=== PATIENT | male | born 1965 | race Caucasian/White ===

== ENCOUNTER 2021-11-01 13:25 | Inpatient (IN) ==
[2021-11-01 15:37] VITALS: BP 141/91
[2021-11-01] MEDS ORDERED: GLUCAGON 1 MG VIAL IM PRN ×2 (16:05)
[2021-11-01] MEDS ORDERED: hydrALAZINE 20 MG/1 ML VIAL IV PRN (16:05)
[2021-11-01] MEDS ORDERED: DEXTROSE 50% 25 GM/50 ML VIAL IV PRN (16:05)
[2021-11-01] MEDS ORDERED: DEXTROSE 10% 250 ML BAG IV PRN (16:28)
[2021-11-01] MEDS ORDERED: ENOXAPARIN 40 MG/0.4 ML SYRINGE SUBCUT SCH (16:30)
[2021-11-01] MEDS: ENOXAPARIN 150 MG/ML SYRINGE SUBCUT SCH (18:20)
[2021-11-01] MEDS: INSULIN LISPRO 100 UNIT/ML SUBCUT SCH ×2 (19:19→23:41)
[2021-11-01 19:31] LABS: Basophils % 0.2 % (0.0-0.8); Eosinophils # 0.2 10*3/uL (0.0-0.87); Eosinophils % 2.5 % (0.00-10.9); Hemoglobin 14.4 GM/DL (14.0-18.0); Immature Granulocytes % 0.4 %; Immature Granulocytes Absolute 0.03 #; Lymphocytes # 3.2 10*3/uL (1.4-4.0); Lymphocytes % 37.4 % (21.2-54.2); Mean Corpuscular Volume 93.4 FL (87-102); Mean Platelet Volume 10.2 FL (9.6-12.0); Monocytes # 0.8 10*3/uL (0.11-0.8); Monocytes % 9.4 % (1.7-12.7); Neutrophils % 50.1 % (38.7-73.9); Platelet Count 144 T/CUMM (130-400); Red Blood Count 4.82 MC/CUMM (3.8-5.5); White Blood Count 8.5 T/CUMM (4-12)
[2021-11-01] MEDS: THIAMINE INJ 100 MG, FOLIC ACID INJ 1 MG, MULTIVITAMIN INJ 10 ML in SODIUM CHLORIDE 0.4... IV SCH (19:38)
[2021-11-01 19:54] LABS: Albumin 3.6 G/DL (3.4-5.0); Bilirubin,Total 0.4 MG/DL (0.20-1.00); Calcium 8.6 MG/DL (8.5-10.1); Osmolality,Calculated 277.5 MOS/KG (273-304); Potassium 4.4 MMOL/L (3.5-5.1); Total Protein 6.9 G/DL (6.4-8.2)
[2021-11-01] MEDS: ATORVASTATIN 80 MG TABLET PO SCH (21:59)
[2021-11-01] MEDS: METOPROLOL TARTRATE 25 MG TABLET PO SCH (22:05)
[2021-11-02 03:10] LABS: Basophils % 0.2 % (0.0-0.8); Eosinophils # 0.2 10*3/uL (0.0-0.87); Eosinophils % 1.8 % (0.00-10.9); Hematocrit 45.9 VOL% (42.0-52.0); Hemoglobin 14.5 GM/DL (14.0-18.0); Immature Granulocytes % 0.4 %; Immature Granulocytes Absolute 0.04 #; Lymphocytes # 3.9 10*3/uL (1.4-4.0); Lymphocytes % 37.9 % (21.2-54.2); Mean Corpuscular HGB Conc 31.6 GM/DL (32-36); Mean Corpuscular Volume 93.3 FL (87-102); Mean Platelet Volume 10.3 FL (9.6-12.0); Monocytes # 0.8 10*3/uL (0.11-0.8); Monocytes % 7.8 % (1.7-12.7); Neutrophils % 51.9 % (38.7-73.9); Platelet Count 145 T/CUMM (130-400); Red Blood Count 4.92 MC/CUMM (3.8-5.5); Red Cell Distribution Width 13.1 % (9.3-17.3); White Blood Count 10.2 T/CUMM (4-12)
[2021-11-02 03:35] LABS: Calcium 8.9 MG/DL (8.5-10.1); Potassium 3.9 MMOL/L (3.5-5.1); Risk Ratio 6.38; Thyroid Stimulating Hormone 1.26 uIU/ml (0.358-3.74)
[2021-11-02] MEDS: ENOXAPARIN 150 MG/ML SYRINGE SUBCUT SCH (05:50)
[2021-11-02] MEDS: INSULIN LISPRO 100 UNIT/ML SUBCUT SCH ×4 (05:54→23:23)
[2021-11-02] MEDS ORDERED: NITROGLYCERIN 2% OINT 1 INCH/GM PACK TOP SCH (06:33)
[2021-11-02] MEDS ORDERED: NITROGLYCERIN SL 0.4 MG TABLET SL PRN (06:33)
[2021-11-02] MEDS ORDERED: DIAZEPAM 5 MG TABLET PO ONE (07:45)
[2021-11-02] MEDS ORDERED: SODIUM CHLORIDE 0.9% 1,000 ML IV SCH (08:00)
[2021-11-02] MEDS: diphenhydrAMINE CAP 25 MG CAPSULE PO ONE (08:18)
[2021-11-02] MEDS ORDERED: NITROGLYCERIN DRIP 50 MG/250 ML BOTTLE IV ONE (09:18)
[2021-11-02] MEDS ORDERED: VERAPAMIL 5 MG/2 ML VIAL ONE (09:19)
[2021-11-02] MEDS ORDERED: HYDROmorphone 1 MG/1 ML SYRINGE ONE ×2 (09:39→10:40)
[2021-11-02] MEDS ORDERED: MIDAZOLAM 2 MG/2 ML VIAL ONE (09:39)
[2021-11-02] MEDS: CITALOPRAM 20 MG TABLET PO SCH (10:02)
[2021-11-02] MEDS: ASPIRIN EC 81 MG TABLET PO SCH ×2 (10:02→11:31)
[2021-11-02] MEDS: PANTOPRAZOLE 40 MG TABLET PO SCH (10:02)
[2021-11-02] MEDS ORDERED: TIROFIBAN 5,000 MCG/100 ML PREMIX IV ONE (10:06)
[2021-11-02] MEDS ORDERED: TICAGRELOR 90 MG TABLET ONE (10:57)
[2021-11-02] MEDS: METOPROLOL TARTRATE 25 MG TABLET PO SCH (11:31)
[2021-11-02] MEDS: NON-FORMULARY MEDICATION (Modafinil 200 mg tablet) PO SCH (11:31)
[2021-11-02] MEDS: OLMESARTAN 5 MG TABLET PO ONE ×2 (11:31→13:43)
[2021-11-02] MEDS: THIAMINE INJ 100 MG, FOLIC ACID INJ 1 MG, MULTIVITAMIN INJ 10 ML in SODIUM CHLORIDE 0.4... IV SCH (18:14)
[2021-11-02] MEDS: TICAGRELOR 90 MG TABLET PO SCH (20:23)
[2021-11-02] MEDS: carvediloL 3.125 MG TABLET PO SCH (20:23)
[2021-11-02] MEDS: ATORVASTATIN 80 MG TABLET PO SCH (20:23)
[2021-11-03] MEDS: INSULIN LISPRO 100 UNIT/ML SUBCUT SCH (05:28)
[2021-11-03 05:31] LABS: Basophils % 0.3 % (0.0-0.8); Eosinophils # 0.1 10*3/uL (0.0-0.87); Eosinophils % 1.2 % (0.00-10.9); Hematocrit 44.7 VOL% (42.0-52.0); Hemoglobin 14.5 GM/DL (14.0-18.0); Immature Granulocytes % 0.4 %; Immature Granulocytes Absolute 0.05 #; Lymphocytes # 3.2 10*3/uL (1.4-4.0); Lymphocytes % 28.9 % (21.2-54.2); Mean Corpuscular HGB Conc 32.4 GM/DL (32-36); Mean Corpuscular Volume 92.2 FL (87-102); Mean Platelet Volume 10.6 FL (9.6-12.0); Monocytes # 0.9 10*3/uL (0.11-0.8); Monocytes % 8.4 % (1.7-12.7); Neutrophils % 60.8 % (38.7-73.9); Platelet Count 142 T/CUMM (130-400); Red Blood Count 4.85 MC/CUMM (3.8-5.5); White Blood Count 11.1 T/CUMM (4-12)
[2021-11-03 05:53] LABS: CKMB % 7.06 %; Calcium 9.1 MG/DL (8.5-10.1); Osmolality,Calculated 273.7 MOS/KG (273-304)
[2021-11-03 05:55] LABS: High Sensitive Troponin I* 3978.2 ng/L (0-78)
[2021-11-03] MEDS: TICAGRELOR 90 MG TABLET PO SCH (08:40)
[2021-11-03] MEDS: PANTOPRAZOLE 40 MG TABLET PO SCH (08:40)
[2021-11-03] MEDS: CITALOPRAM 20 MG TABLET PO SCH (08:40)
[2021-11-03] MEDS: ASPIRIN EC 81 MG TABLET PO SCH (08:40)
[2021-11-03] MEDS: carvediloL 3.125 MG TABLET PO SCH (08:40)
[2021-11-03] MEDS: NON-FORMULARY MEDICATION (Modafinil 200 mg tablet) PO SCH (08:42)
[2021-11-03] MEDS ORDERED: OLMESARTAN 5 MG TABLET PO SCH (09:00)
== END 2021-11-03 10:52 | disposition home or self-care (01) | DRG 247 ==
LOC: N.TELES → SUATTDRO 15:05 → N.ICU 17:55
PROVIDERS: ADMIT Internal Medicine; ATTEND Family Medicine
PROC: CLCCHCL (ICD-10-PCS; 2021-11-02 09:45)